=== PATIENT | male | born 1985 | race Caucasian/White ===

== ENCOUNTER 2017-02-03 19:08 | Emergency (ER) | payer OTHER ==
[~2017-02-03] VITALS: Ht 175.3 cm; Wt 94.8 kg
[2017-02-03 21:16] VITALS: BP 145/89
== END 2017-02-03 21:16 | disposition home or self-care (01) ==
LOC: EME 19:08
DX: R09.89 Other specified symptoms and signs involving the circulatory and respiratory systems (principal); G80.9 Cerebral palsy, unspecified; F84.0 Autistic disorder; Z88.0 Allergy status to penicillin
CPT/HCPCS: 99281; 99284

== ENCOUNTER 2017-11-25 14:14 | Emergency (ER) | payer OTHER ==
[~2017-11-25] VITALS: Ht 177.8 cm; Wt 103.7 kg
[2017-11-25 16:57] VITALS: BP 131/74
== END 2017-11-25 17:02 | disposition home or self-care (01) ==
LOC: EME 14:14
DX: R09.89 Other specified symptoms and signs involving the circulatory and respiratory systems (principal); G80.9 Cerebral palsy, unspecified; F84.0 Autistic disorder; Z88.0 Allergy status to penicillin
CPT/HCPCS: 71046; 99281; 99284